=== PATIENT | male | born 1995 | race Caucasian/White ===

== ENCOUNTER 2018-01-09 22:09 | Emergency (ER) | payer BC ==
[2018-01-10] MEDS: HYDROCODONE/APAP (5/325) TAB PO (01:05)
== END 2018-01-10 01:35 | disposition home or self-care (01) ==
LOC: FTE 22:09
DX: S61.205A Unspecified open wound of left ring finger without damage to nail, initial encounter (principal); W27.2XXA Contact with scissors, initial encounter; Y92.9 Unspecified place or not applicable
CPT/HCPCS: 99284

== ENCOUNTER 2018-05-08 02:02 | Emergency (ER) | payer BC ==
[2018-05-08] MEDS: ONDANSETRON (ODT) 4 MG TAB ODT (03:24)
[2018-05-08] MEDS: traMADol 50 MG TAB PO (03:24)
== END 2018-05-08 03:46 | disposition home or self-care (01) ==
LOC: FTE 02:02
DX: S00.93XA Contusion of unspecified part of head, initial encounter (principal); F17.210 Nicotine dependence, cigarettes, uncomplicated; W22.8XXA Striking against or struck by other objects, initial encounter; Y92.9 Unspecified place or not applicable
CPT/HCPCS: 99284